=== PATIENT | female | born 1965 | race Caucasian/White ===

== ENCOUNTER → 2019-01-07 | Outpatient (CLI) | payer OTHER ==
--- NOTE | 2019-01-08 11:52 | RADIOLOGY IMAGING REPORT ---
FACILITY: [facility] PATIENT NAME: JANEL MENDOZA : [id number] MR: [id number] V: [id number] EXAM DATE: [id number] ORDERING PHYSICIAN: ELIESER DE LA TORRE TECHNOLOGIST: Cecilia Long PROCEDURE:BILATERAL DIGITAL SCREENING MAMMOGRAM WITH CAD ASSISTED INTERPRETATION & 3D TOMOSYNTHESIS COMPARISON:Prior mammograms 08/07/17, 03/04/15, 08/11/14. INDICATIONS:screening FINDINGS: The breasts are heterogeneously dense which can obscure small masses. Just lateral to midline in the middle 1/3 of the Right breast on the Right CC view there is a focal asymmetry for which Spot compression view is recommended. This is best identified on Tomographic slice 25. The remainder of the parenchymal pattern has remained relatively stable allowing for difference in mammographic technique & patient positioning. DIAGNOSTIC CATEGORY 0--INCOMPLETE: NEED ADDITIONAL IMAGING EVALUATION. RECOMMENDATIONS: ADDITIONAL MAMMOGRAPHIC VIEWS REQUIRED: RIGHT BREAST. IMPRESSION: BIRADS 0: Incomplete. Additional views of the Right breast are recommended as described. Dictated by: Mel Olguin M.D. on 01/07/2019 at 16:32 Transcribed by: SINCERE on 01/08/2019 at 11:27 Approved by: Mel Olguin M.D. on 01/08/2019 at 11:51 [facility]
== END ==
LOC: MAMO 00:46
PROVIDERS: ATTEND Physician Assistant
DX: R92.2 Inconclusive mammogram (principal)
CPT/HCPCS: 77063; 77067

== ENCOUNTER → 2019-01-22 | Outpatient (CLI) | payer OTHER ==
--- NOTE | 2019-01-23 10:43 | RADIOLOGY IMAGING REPORT ---
FACILITY: [facility] - [place], [place] PATIENT NAME: JANEL MENDOZA : [id number] MR: [id number] V: [id number] EXAM DATE: [id number] ORDERING PHYSICIAN: ELIESER DE LA TORRE TECHNOLOGIST: Layla Echols PROCEDURE:UNILATERAL RIGHT DIAGNOSTIC DIGITAL MAMMOGRAM WITH CAD ASSISTED INTERPRETATION & 3D TOMOSYNTHESIS COMPARISON:Prior mammograms 01/07/19, 08/07/17, 03/04/15, 08/11/14. INDICATIONS:FURTHER EVAL FINDINGS: The patient returned for Spot compression view in the Right CC projection with 3D breast Tomosynthesis. The small asymmetry noted just lateral to midline in the middle 1/3 of the Right breast on the recent Right CC view appeared compressible and apparently represented a summation shadow. DIAGNOSTIC CATEGORY 2--BENIGN FINDING. RECOMMENDATIONS: ROUTINE MAMMOGRAM AND CLINICAL EVALUATION. IMPRESSION: BIRADS 2: Benign finding. No significant abnormality is seen in the Right breast. Dictated by: Mel Olguin M.D. on 01/22/2019 at 16:37 Transcribed by: SINCERE on 01/23/2019 at 10:11 Approved by: Mel Olguin M.D. on 01/23/2019 at 10:41 [facility]
== END ==
LOC: MAMO 00:21
PROVIDERS: ATTEND Physician Assistant
DX: R92.2 Inconclusive mammogram (principal)
CPT/HCPCS: 77062; 77066